=== PATIENT | male | born 1955 | race Caucasian/White ===

== ENCOUNTER 2016-08-18 15:17 | Outpatient (CLI) | payer OTHER ==
[~2016-08-18] VITALS: Ht 170.2 cm; Wt 102.0 kg
[2016-08-18 15:30] VITALS: BP 157/80; PULSE 71; RESP 18; Ht 170.2 cm; Wt 102.0 kg
[2016-08-18] MEDS ORDERED: AMLO-147 PO (15:49)
[2016-08-18] MEDS ORDERED: METO-407 PO (15:49)
[2016-08-18] MEDS ORDERED: CHLO25TA13 PO (15:49)
[2016-08-18] MEDS ORDERED: MTF1000T PO (15:49)
[2016-08-18] MEDS ORDERED: ENAL20TA PO (15:49)
[2016-08-18] MEDS ORDERED: GLIP5TAB13 PO (15:49)
--- NOTE | 2016-08-18 15:50 | PN ---
Date/Time of Note Date/Time of Note DATE: 08/18/16 TIME: 15:44 Outpatient Progress Note Chief Complaint CVA/diabetes/hypertension/hyperlipidemia HPI CVA/patient had acute onset of drooping of angle of mouth on the left side few days ago, patient did have history of fall CVA in 2012, no headache or dizziness or seizure, no dysphagia, Diabetes/no polydipsia polyuria hypoglycemia, gastroparesis, Hypertension/no headache or dizziness, no lightheadedness, Hyperlipidemia/no xanthoma, on medication, side effect of medication, Review of Systems Const: [No Fever, no chills, no Wt. loss, no Fatigue, normal appetite, no diaphoresis.] Eyes: [No pain, no discharge, no redness, no visual change, no foreign body.] ENT: [No pain, no bleeding, no congestion, no sore throat, no dysphagia, no discharge or rhinitis.] Lymph: [No adenopathy, no tender nodes, no lymphedema.] Resp: [No SOB, no cough, no sputum, no wheezing, no chest pain.] CV: [No chest pain, no palpitaions, no CARTWRIGHT, no PND, no edema.] GI: [Normal appetite, no pain, no nausea, no vomiting, no diarrhea, no blood, no constipation.] : [No frequency, no urgency, no dysuria, no hematuria, no flank pain, no discharge, no bleeding.] Musc: [No bone/joint pain, no back pain, no neck pain, no knee pain, no restricted ROM.] Skin: [No rash, no skin lesions, no erythema, no laceration, no bruising, no pruritus.] Neuro: [No NAVARRETE, no dizziness, no syncope, no seizure, patient has drooling of angle of mouth on left side, patient also has slight weakness on left side, from the old stroke,.] Endo: [No polyuria, no polydypsia, no dry-skin, no temp-intolerance.] Psych: [No hallucinations, no depression, no anxiety, no suicidal ideation.] Ext: [No edema, no pain, no ulcer, no weakness.] Physical Exam General Appearance: A [60] year-old [male] [who appears well-developed, well- nourished, in no acute distress.] HEENT: [Head normocephalic, atraumatic. Pupils equal, round, reactive to light and accommodate. Sclerae are no jaundice. Nasal turbinates pink without erythema or nasal discharge. Mucous membranes pink and moist without lesions. Oropharynx clear without any exudate or discharge.] NECK: [Supple. Trachea midline, No thyromegaly, No cervical lymphadenopathy, No mass, No carotid bruits, No JVD, Carotid pulses 2+ bilaterally.] PULMONARY: [Clear to auscultaion bilaterally, No retractions, Chest expansion symmetric bilaterally, no rales, no ronchi, no dulness on percussion.] CARDIAC: [Normal SI and S2, Regular rate and rythm, no murmur, gallop, or rub.] GASTROINTESTINAL: [Abdomen is soft, non-tender, Non Rigid, No distention, Positive bowel sounds x4 quadrants, Liver normal.] SKIN: [Warm, dry, no rash, no bruise, no echmosis.] EXTREMITIES: [Bilateral lower extremities no edema, no phlabitus, pulse palpable , patient has weakness in her left upper and lower x-ray, minimal,.] MUSCULOSKELETAL: [Spine Normal, Non-tender, Normal range of motion, No swelling , no deformity, no clubbing, or cyanosis, the patient has no edema to bilateral lower extremities, dorsalis pedis pulses palpable bilaterally.] NEUROLOGIC: [The patient is awake, alert, oriented, drooling of the angle of multiple left-sided, responding to yes/no questions appropriately, moving all extremities, minimal weakness on left side, upper and lower extremities, from the old stroke, cranial nerve intact, normal strenght, normal power, normal coordination, slightly unsteady gait.] PMH CVA,/hypertension/hyperlipidemia/diabetes Social Hx No smoking or drinking at present, Family Hx Noncontributory Assessment/Plan Impression CVA/diabetes/hypertension/hyperlipidemia Plan Patient has drooling of angle of mouth, patient doing better, no dysphagia, patient slightly unsteady walking, no fall, Patient has all medication, except Thalidone, Will refill, pharmacy will be called, Patient encouraged to increase activity, fall precaution, discussed with the family, if patient needs a cane or walker, Patient encouraged to follow with the primary care physician, KEILY ORNELAS MD Aug 18, 2016 15:50
== END 2016-08-18 16:44 | disposition home or self-care (01) ==
LOC: DCC 15:17
PROVIDERS: ATTEND Internal Medicine
DX: I63.9 Cerebral infarction, unspecified (principal); E11.9 Type 2 diabetes mellitus without complications; I10 Essential (primary) hypertension; E78.5 Hyperlipidemia, unspecified

== ENCOUNTER 2016-09-01 11:19 | Outpatient (CLI) | payer OTHER ==
[~2016-09-01] VITALS: Ht 170.2 cm; Wt 101.8 kg
[~2016-09-01 11:19] MED LIST: AMLO-147 PO; CHLO25TA13 PO; ENAL20TA PO; GLIP5TAB13 PO; METO-407 PO; MTF1000T PO
[2016-09-01 11:27] VITALS: BP 162/89; PULSE 69; RESP 20; Ht 170.2 cm; Wt 101.8 kg
--- NOTE | 2016-09-01 12:15 | PN ---
Date/Time of Note Date/Time of Note DATE: 09/01/16 TIME: 12:09 Outpatient Progress Note Chief Complaint CVA/hypertension/hyperlipidemia/diabetes HPI CVA/patient was recently hospitalized with acute CVA, patient still has minimal weakness on left side, patient able to ambulate well, no cough during the eating , no fever chills, no chest tightness, no local focal weakness new weakness, no fall, Hypertension/no headache or dizziness, patient is still slightly elevated systolic blood pressure, blood pressure 168 systolic, patient has been taking f4 medication, Hyperlipidemia/no xanthoma, on medication, side effect, Diabetes/no pleuritic supple due to hypoglycemia, patient to check blood sugar, patient states that blood sugar has been okay, Review of Systems Since const: No Fever, no chills, no Wt. loss, no Fatigue, normal appetite, no diaphoresis. Eyes: No pain, no discharge, no redness, no visual change, no foreign body. ENT: No pain, no bleeding, no congestion, no sore throat, no dysphagia, no discharge or rhinitis. Lymph: No adenopathy, no tender nodes, no lymphedema. Resp: No SOB, no cough, no sputum, no wheezing, no chest pain. CV: No chest pain, no palpitaions, no CARTWRIGHT, no PND, no edema. GI: Normal appetite, no pain, no nausea, no vomiting, no diarrhea, no blood, no constipation. : No frequency, no urgency, no dysuria, no hematuria, no flank pain, no discharge, no bleeding. Musc: No bone/joint pain, no back pain, no neck pain, no knee pain, no restricted ROM. Skin: No rash, no skin lesions, no erythema, no laceration, no bruising, no pruritus. Neuro: No NAVARRETE, no dizziness, no syncope, no seizure, minimal left-sided focal- weakness especially leg,. Endo: No polyuria, no polydypsia, no dry-skin, no temp-intolerance. Psych: No hallucinations, no depression, no anxiety, no suicidal ideation. Ext: No edema, no pain, no ulcer, minimal weakness of left leg, gait steady, Physical Exam Vital Signs Date Time Temp Pulse Resp B/P Pulse Ox O2 Delivery O2 Flow Rate FiO2 09/01/16 11:27 98.4 69 20 162/89 94 Room Air General Appearance: A 60 year-old male who appears well-developed, well- nourished, in no acute distress. HEENT: Head normocephalic, atraumatic. Pupils equal, round, reactive to light and accommodate. Sclerae are no jaundice. Nasal turbinates pink without erythema or nasal discharge. Mucous membranes pink and moist without lesions. Oropharynx clear without any exudate or discharge. NECK: Supple. Trachea midline, No thyromegaly, No cervical lymphadenopathy, No mass, No carotid bruits, No JVD, Carotid pulses 2+ bilaterally. PULMONARY: Clear to auscultaion bilaterally, No retractions, Chest expansion symmetric bilaterally, no rales, no ronchi, no dulness on percussion. CARDIAC: Normal SI and S2, Regular rate and rythm, no murmur, gallop, or rub. GASTROINTESTINAL: Abdomen is soft, non-tender, Non Rigid, No distention, Positive bowel sounds x4 quadrants, Liver normal. SKIN: Warm, dry, no rash, no bruise, no echmosis. EXTREMITIES: Bilateral lower extremities normal, no edema, no phlabitus, pulse palpable, no contracture. Minimal weakness of left leg, gait steady, MUSCULOSKELETAL: Spine Normal, Non-tender, Normal range of motion, No swelling, no deformity, no clubbing, or cyanosis, the patient has no edema to bilateral lower extremities, dorsalis pedis pulses palpable bilaterally. NEUROLOGIC: The patient is awake, alert, oriented, responding to yes/no questions appropriately, moving all extremities, cranial nerve intact, nor minimal reduction in strenght, and power, normal coordination, normal gait. Allergies Coded Allergies: No Known Drug Allergies (Verified Allergy, Unknown, 08/18/16) PMH No change Social Hx No change Family Hx No change Assessment/Plan Impression CVA/hypertension/hyperlipidemia/diabetes Plan Patient fairly steady in walking, patient does not have any coughing during eating, no aspiration, Patient encouraged to follow with the primary care physician, patient's systolic blood pressure is still high, patient is taking 4 different medication, I will increase benazepril from 20 mg daily to 40 mg daily, #30 Patient advised to take 2 benazepril 20 mg until it is finished and then start 40 mg p.o. daily, patient explained in [place], Primary care physician to check the blood pressure in 2 weeks, if any problem patient to call us or call primary care physician, Medications Home Meds Reported Medications Metoprolol Tartrate* (Lopressor*) 100 Mg Tablet, 100 MG PO BID, #60 TAB 08/18/16 Metformin* (Glucophage*) 1,000 Mg Tablet, 1000 MG PO BID, #60 TAB 08/18/16 Glipizide* (Glipizide*) 5 Mg Tablet, 5 MG PO BID, TAB 08/18/16 Enalapril Maleate* (Enalapril Maleate*) 20 Mg Tablet, 20 MG PO DAILY, TAB 08/18/16 Chlorthalidone* (Chlorthalidone*) 25 Mg Tablet, 12.5 MG PO DAILY, TAB 08/18/16 Amlodipine Besylate* (Amlodipine Besylate*) 10 Mg Tablet, 10 MG PO DAILY, #30 TAB 08/18/16 KEILY ORNELAS MD Sep 01, 2016 12:15
== END 2016-09-01 17:05 | disposition home or self-care (01) ==
LOC: DCC 11:19
PROVIDERS: ATTEND Internal Medicine
DX: I63.9 Cerebral infarction, unspecified (principal); I10 Essential (primary) hypertension; E78.5 Hyperlipidemia, unspecified; E11.9 Type 2 diabetes mellitus without complications